=== PATIENT | female | born 1990 | race African-American/Black ===

== ENCOUNTER 2016-10-17 10:29 | Inpatient (IN) ==
[2016-10-17] MEDS ORDERED: ONDANSETRON 4 MG/2 ML VIAL IV PRN ×2 (11:14→20:30)
[2016-10-17] MEDS ORDERED: BUTORPHANOL 2 MG/ML VIAL IV PRN (11:14)
[2016-10-17] MEDS ORDERED: MEPERIDINE 50 MG/1 ML VIAL IV PRN (11:14)
[2016-10-17] MEDS ORDERED: LACTATED RINGERS 1,000 ML IV PRN (11:14)
[2016-10-17] MEDS: AMPICILLIN INJ 2,000 MG in SODIUM CHLORIDE 0.9% 100 ML IV SCH ×2 (11:30→17:22)
[2016-10-17] MEDS: LACTATED RINGERS 1,000 ML IV SCH ×2 (11:34→23:24)
[2016-10-17] MEDS ORDERED: LACTATED RINGERS 500 ML IV ONE (11:39)
[2016-10-17] MEDS ORDERED: ePHEDrine 50 MG/ML AMP IV PRN (11:39)
[2016-10-17] MEDS ORDERED: LACTATED RINGERS 1,000 ML IV ONE (11:39)
[2016-10-17 11:45] LABS: Basophils % 0.4 % (0.0-0.8); Eosinophils # 0.1 10*3/uL (0.0-0.87); Hematocrit 32.6 VOL% (35.7-47.0); Hemoglobin 11.3 GM/DL (12.0-16.0); Immature Granulocytes Absolute 0.07 #; Lymphocytes # 2.3 10*3/uL (1.4-4.0); Lymphocytes % 31.9 % (21.3-54.2); Mean Corpuscular HGB Conc 34.7 GM/DL (32-36); Mean Corpuscular Hemoglobin 31 PG (27-34); Mean Corpuscular Volume 89.6 FL (87-102); Mean Platelet Volume 9.9 FL (9.6-12.0); Monocytes # 0.6 10*3/uL (0.11-0.8); Monocytes % 8.5 % (1.7-12.7); NRBC # 0.03 10*3/uL; Neutrophils % 56.2 % (38.7-73.9); Platelet Count 350 T/CUMM (130-400); Red Blood Count 3.64 MC/CUMM (3.8-5.5); Red Cell Distribution Width 13.6 % (9.3-17.3); White Blood Count 7.1 T/CUMM (4-12)
[2016-10-17] MEDS: OXYTOCIN/LR 20 UNIT/1,000 ML BAG IV SCH (12:00)
[2016-10-17] MEDS ORDERED: LACTATED RINGERS 1,000 ML IV SCH ×2 (12:00)
[2016-10-17] MEDS ORDERED: CITRIC ACID/SODIUM CITRATE 30 ML UDCUP PO ONE (12:13)
[2016-10-17] MEDS ORDERED: FAMOTIDINE 20 MG/2 ML VIAL IV ONE (12:13)
[2016-10-17] MEDS ORDERED: fentaNYL 2 MCG/ROPIV 0.2% EPID 150 ML EPIDURAL ONE (12:14)
[2016-10-17 12:20] LABS: Alanine Aminotransferase 13 U/L (13-56); Albumin 2.2 G/DL (3.4-5.0); Alkaline Phosphatase 348 U/L (45-117); Aspartate Amino Transferase 15 U/L (0-37); Bilirubin,Total < 0.39 MG/DL (0.2-1.0); Blood Urea Nitrogen 6 MG/DL (7-18); Calcium 9.1 MG/DL (8.5-10.1); Glucose 69 MG/DL (74-106); Osmolality,Calculated 272.5 MOS/KG (273-304); Sodium 139 MMOL/L (136-145); Total Protein 6.1 G/DL (6.4-8.3); Uric Acid 4.1 MG/DL (2.6-6.0)
[2016-10-17 12:45] LABS: Rubella Antibody IgG 40.5 IU/ML
[2016-10-17 13:11] LABS: HIV Antigen/Antibody Result Nonreactive (Nonreactive); Hepatitis B Surface Ag Quant < 0.10 Index; Hepatitis B Surface Ag Result Negative (Negative)
[2016-10-17 14:06] LABS: Apearance,Urine CLEAR (Clear); Bilirubin,Urine Negative (Negative); Blood, Urine Negative (Negative); Glucose,Urine (UA) Negative (Negative); Ketones,Urine Negative (Negative); Mucus,Urine Occasional /LPF (Occasional); Nitrite,Urine Negative (Negative); Protein,Urine Negative; RBC,Urine 1 /HPF (0-4); Squamous Epithelial Cell,Urine Occasional /HPF (0-10); Urine Color Yellow (Yellow); Urine Specific Gravity 1.015 (1.001-1.035); Urine Urobilinogen < 2.0 EU/DL (0.2-1.0); WBC,Urine 1 /HPF (0-6)
[2016-10-17 14:18] LABS: Barbiturates Screen,Urine Negative (Negative); Benzodiazepines Screen,Urine Negative (Negative); Cannabinoid Screen,Urine Positive (Negative); Opiate Screen,Urine Negative (Negative); Phencyclidine Screen,Urine Negative (Negative)
[2016-10-17] MEDS ORDERED: LIDOCAINE 1% 50 ML VIAL ONE (19:59)
[2016-10-17] MEDS ORDERED: miSOPROStol 200 MCG TABLET ONE (19:59)
[2016-10-17] MEDS ORDERED: METHYLERGONOVINE 0.2 MG/1 ML AMP ONE (20:00)
--- NOTE | 2016-10-17 20:28 | OB/GYN History & Physical ---
History of Present Illness Chief complaint: 26 yo at ~37 wks per pt history with SROM this morning. History of present illness: Ms. Vann is a 26 year old female No care except a reported US early in the giving a reported EDC 11/06/16. Denies any problems with first delivery. + drug screen today for methamphetamine and marijuana. Denies PMH, DM or HTN. 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 - Constitutional Vitals: Vital Signs Temp Pulse Resp BP Pulse Ox 10/17/16 19:18 97.6 F 73 18 108/56 10/17/16 16:00 98.0 F 68 18 130/79 10/17/16 12:00 97.8 F 61 18 108/65 10/17/16 11:18 97 H 18 111/61 98 General appearance: normal weight, no acute distress - Head Head exam: Present: normal inspection, normocephalic - Eye Eye exam: Present: EOMI - Respiratory Respiratory exam: Present: clear to auscultation bilaterally - Cardiovascular Cardiovascular exam: Present: regular rate and rhythm - GI/Abdominal GI/Abdominal exam: Present: soft (gravid uterus midline with mild UCs) - Extremities Exam Extremities exam: Present: normal inspection - Neurological Exam Neurological exam: Present: alert, oriented X3 - Psychiatric Psychiatric exam: Present: normal affect, normal mood - Skin Skin exam: Present: normal color, warm Assessment and Plan (1) SROM (spontaneous rupture of membranes) Status: Acute Assessment and plan: Admit, augment labor as indicated, expect Current Visit: Yes (2) No care in current in third trimester Status: Acute Current Visit: Yes (3) Methamphetamine use Status: Acute Current Visit: Yes Results - Labs CBC & BMP: 10/17/16 11:37 10/17/16 11:37 Lab Results: I have reviewed the past 24 hour labs Quality Measures - VTE Contraindication to Pharmacological VTE Prophylaxis: Clinical assessment deems Pt at low risk, no prophalaxis needed
[2016-10-17] MEDS ORDERED: oxyCODONE/ACETAMINOPHEN 5-325 MG TABLET PO PRN ×2 (20:30)
[2016-10-17] MEDS ORDERED: WITCH HAZEL PADS 100/JAR TOP PRN (20:30)
[2016-10-17] MEDS ORDERED: DIPH/TET/ACEL PERT BOOSTER VACCINE 0.5 ML VIAL IM ONE (20:30)
[2016-10-17] MEDS ORDERED: BENZOCAINE 20%/MENTHOL 0.5% SPRAY 56 GM CAN TOP PRN (20:30)
[2016-10-17] MEDS ORDERED: HYDROCORTISONE 2.5% RECTAL CREAM 30 GM TUBE TOP PRN (20:30)
[2016-10-17] MEDS ORDERED: ACETAMINOPHEN 325 MG TABLET PO PRN (20:30)
[2016-10-17] MEDS ORDERED: IBUPROFEN 800 MG TABLET PO PRN (20:30)
[2016-10-17] MEDS ORDERED: LANOLIN 50% CREAM 0.3 OZ TUBE TOP PRN (20:30)
[2016-10-17] MEDS ORDERED: MEASLES/MUMPS/RUBELLA VACCINE 0.5 ML VIAL SUBCUT ONE (20:30)
[2016-10-17] MEDS ORDERED: RHO(D) IMMUNE GLOBULIN 300 MCG SYRINGE IM ONE (20:30)
[2016-10-17] MEDS ORDERED: OXYTOCIN/LR 20 UNIT/1,000 ML BAG IV ONE (20:30)
[2016-10-17] MEDS ORDERED: BISACODYL 10 MG SUPP RECTAL PRN (20:30)
--- NOTE | 2016-10-17 20:34 | Operative Note ---
Date of procedure: 10/17/16 Pre-op diagnosis: 1.SROM;2. third TM with no care;3. methamphetamine use Post-op diagnosis: same Procedure: Delivery note. Patient progressed to complete and pushing with labor epidural and Pitocin augmentation and delivered a viable male over intact perineum, right medial labial laceration. Baby was bulb suctioned on the perineum. Cord was double clamped and cut. Cord blood was collected and placenta was delivered intact. Figure of 8 stitch to distal portion of medial labial laceration placed for hemostasis. No other lacerations id'd. Fundus is firm. Estimated blood loss 300 mL. Complications none. Patient is stable and the baby is stable. Anesthesia: epidural Surgeon / Physician: Galilea Aj Estimated blood loss: other (300cc) Specimens: other (placenta to path; cord blood to lab) Condition: stable Disposition: PACU Results - Labs CBC & BMP: 10/17/16 11:37 10/17/16 11:37 Discharge Plan - Discharge Medications No Action Vit No.124/Iron/Folic [ Vitamin Tablet] 1 tablet PO DAILY - Follow Up or Referral - Forms/Instructions
[2016-10-17] MEDS: DOCUSATE SODIUM 100 MG CAPSULE PO SCH (23:15)
[2016-10-18 04:20] LABS: Basophils % 0.2 % (0.0-0.8); Eosinophils # 0.1 10*3/uL (0.0-0.87); Eosinophils % 0.9 % (0.00-10.9); Hematocrit 31.6 VOL% (35.7-47.0); Hemoglobin 10.8 GM/DL (12.0-16.0); Immature Granulocytes % 0.6 %; Immature Granulocytes Absolute 0.08 #; Lymphocytes % 15.8 % (21.3-54.2); Mean Corpuscular HGB Conc 34.2 GM/DL (32-36); Mean Corpuscular Hemoglobin 30 PG (27-34); Mean Corpuscular Volume 88.5 FL (87-102); Mean Platelet Volume 10.2 FL (9.6-12.0); Monocytes # 1.1 10*3/uL (0.11-0.8); Monocytes % 8.1 % (1.7-12.7); Neutrophils # 9.6 10*3/uL (1.4-7.4); Neutrophils % 74.4 % (38.7-73.9); Platelet Count 333 T/CUMM (130-400); Red Blood Count 3.57 MC/CUMM (3.8-5.5); Red Cell Distribution Width 13.3 % (9.3-17.3); White Blood Count 12.9 T/CUMM (4-12)
[2016-10-18] MEDS: AMPICILLIN INJ 2,000 MG in SODIUM CHLORIDE 0.9% 100 ML IV SCH (04:32)
[2016-10-18] MEDS: LACTATED RINGERS 1,000 ML IV SCH ×3 (04:33→21:24)
[2016-10-18] MEDS: DOCUSATE SODIUM 100 MG CAPSULE PO SCH ×2 (08:15→21:22)
--- NOTE | 2016-10-18 13:03 | OB/GYN Progress Note ---
Assessment and Plan (1) SROM (spontaneous rupture of membranes) Status: Acute Current Visit: Yes (2) No care in current in third trimester Status: Acute Current Visit: Yes (3) Methamphetamine use Status: Acute Current Visit: Yes (4) delivery, delivered, current hospitalization Status: Acute Assessment and plan: Routine care. 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 Current Visit: Yes STAFF PSYCHIATRIST - PN: Subj Interval history: POD#1/2 Doing well. VSSAF Exam STAFF PSYCHIATRIST - Constitutional Vitals: Vital Signs Temp Pulse Resp BP Pulse Ox 10/18/16 11:39 97.2 F L 65 20 105/61 98 10/18/16 10:00 18 10/18/16 08:00 98.1 F 61 20 115/72 99 10/18/16 06:00 20 10/18/16 04:00 97.9 F 66 20 116/73 100 10/18/16 02:00 20 10/18/16 00:45 97.7 F 61 18 108/67 99 10/18/16 00:00 97.5 F L 62 18 127/79 10/17/16 19:18 97.6 F 73 18 108/56 10/17/16 16:00 98.0 F 68 18 130/79 General appearance: normal weight, no acute distress - Head Head exam: Present: normal inspection, normocephalic - Eye Eye exam: Present: EOMI - Respiratory Respiratory exam: Present: clear to auscultation bilaterally - Cardiovascular Cardiovascular exam: Present: regular rate and rhythm - GI/Abdominal GI/Abdominal exam: Present: soft (Incision intact without E/I/D) - Extremities Exam Extremities exam: Present: normal inspection - Neurological Exam Neurological exam: Present: alert, oriented X3 - Psychiatric Psychiatric exam: Present: normal affect, normal mood - Skin Skin exam: Present: normal color, warm Results - Labs CBC & BMP: 10/18/16 04:03 10/17/16 11:37 Lab Results: I have reviewed the past 24 hour labs
--- NOTE | 2016-10-18 13:05 | OB/GYN Progress Note ---
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
--- NOTE | 2016-10-18 13:11 | OB/GYN Progress Note ---
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 Exam LITIGATION CLAIM REPRESENTATIVE - Constitutional Vitals: Vital Signs Temp Pulse Resp BP Pulse Ox 10/18/16 11:39 97.2 F L 65 20 105/61 98 10/18/16 10:00 18 10/18/16 08:00 98.1 F 61 20 115/72 99 10/18/16 06:00 20 10/18/16 04:00 97.9 F 66 20 116/73 100 10/18/16 02:00 20 10/18/16 00:45 97.7 F 61 18 108/67 99 10/18/16 00:00 97.5 F L 62 18 127/79 10/17/16 19:18 97.6 F 73 18 108/56 10/17/16 16:00 98.0 F 68 18 130/79 General appearance: normal weight, no acute distress - Head Head exam: Present: normal inspection, normocephalic - Eye Eye exam: Present: EOMI - Respiratory Respiratory exam: Present: clear to auscultation bilaterally - Cardiovascular Cardiovascular exam: Present: regular rate and rhythm - GI/Abdominal GI/Abdominal exam: Present: soft (fundus firm, nontender) - Extremities Exam Extremities exam: Present: normal inspection - Neurological Exam Neurological exam: Present: alert, oriented X3 - Psychiatric Psychiatric exam: Present: normal affect, normal mood - Skin Skin exam: Present: normal color, warm Results - Labs CBC & BMP: 10/18/16 04:03 10/17/16 11:37 Lab Results: I have reviewed the past 24 hour labs
[2016-10-18] MEDS: OXYTOCIN/LR 20 UNIT/1,000 ML BAG IV SCH (21:24)
[2016-10-19] MEDS: LACTATED RINGERS 1,000 ML IV SCH (06:30)
[2016-10-19 08:05] VITALS: BP 124/71
[2016-10-19] MEDS: DOCUSATE SODIUM 100 MG CAPSULE PO SCH (09:29)
--- NOTE | 2016-10-19 09:47 | Discharge Summary ---
Hospital Course - Hospital Course Hospital Course: Pt delivered without complication. Her course has been unremarkable. spoilage worker has reportedly seen pt. Diagnosis - Discharge Diagnosis (1) SROM (spontaneous rupture of membranes) Status: Acute (2) No care in current in third trimester Status: Acute (3) Methamphetamine use Status: Acute (4) Vaginal delivery Status: Acute Specialty Discharge - Follow Up or Referrals Discharge Plan - Discharge Data Disposition: Disch To Home/Self Care Condition at Discharge: Stable Discharge Diet: regular diet Activity: other (pelvic rest x 6 wks) Hygiene: may shower Weight Bearing at Discharge: full weight bearing Driving: no restrictions (if not taking narcotics) Contact your physician if you experience:: fever over 101, Difficulty voiding, Redness or swelling, Nausea/Vomiting, Shortness of breath, Bleeding, pain uncontrolled by pain medications - Discharge Medications New Ibuprofen Tab [Motrin Tab] 800 mg PO Q6H PRN #30 tablet PRN Reason: Pain Moderate (4-7) No Action Vit No.124/Iron/Folic [ Vitamin Tablet] 1 tablet PO DAILY - Follow Up or Referral Follow Up: Galilea Aj DO [Physician] - (6 wks) - Forms/Instructions Instructions: Perineal Care (DC), Vaginal Delivery (DC), Bleeding (DC) Exam - Constitutional Vitals: Period Temp Pulse Resp BP Sys/Bailey Pulse Ox Last 24 Hr 96.7 F-98.7 F 64-88 18-20 105-131/61-79 96-100 General appearance: normal weight, no acute distress - Head Head exam: Present: normal inspection, normocephalic - Eye Eye exam: Present: EOMI - Respiratory Respiratory exam: Present: clear to auscultation bilaterally - Cardiovascular Cardiovascular exam: Present: regular rate and rhythm - GI/Abdominal GI/Abdominal exam: Present: soft (fundus firm, nontender) - Extremities Exam Extremities exam: Present: normal inspection - Neurological Exam Neurological exam: Present: alert, oriented X3 - Psychiatric Psychiatric exam: Present: normal affect, normal mood - Skin Skin exam: Present: normal color, warm DS: Provider Date of admission: 10/17/16 11:14 Primary care physician: . No PCP Attending physician on admission: Galilea Aj DO Consults: 10/17/16 11:14 Consult to Anesthesiology [CONS] Routine Consulting Provider: Reason for Anesthesiology: Epidural Consult Comment: Epidural for pain managment 10/17/16 20:31 Consult to Audio Visual Production Specialist [CONS] Routine Consult Audio Visual Production Specialist: Breast Feeding 10/18/16 04:37 Consult to Case Mgmt/Social Srvs [CONS] Routine Reason for Case Mgmt/Social Srvs: Other Consult Comment: positive for meth and marijuanna on admit. Discharging clinician: Galilea Aj DO Expected date of discharge: 10/19/16
--- NOTE | 2016-10-19 10:31 | Anesthesia Post-Op ---
Anesthesia Post OP - Post Ansesthetic Evaluation Patient seen in post op: Yes Resp: within normal limits CV: within normal limits Mental: within normal limits Temp: within normal limits [id number]: within normal limits Nausea and Vomiting: within normal limits Pain: within normal limits
--- NOTE | 2016-10-21 11:17 | Pathology Report from [facility] ---
[facility] ACCESSION # : [id number] PATIENT NAME : Bertha Vann ORDERING DR : DEIRDRE SWANN, CLINICAL HX: IUP @ 37.1 wks gestation, HX of drug use POST-OP DX: Same SPECIMEN INFO: Placenta GROSS DESCRIPTION: Received fresh labeled BERTHA VANN & PLACENTA is a 528 gm placenta measuring 19.3 x 14.4 x 3 cm. The membranes are pink liang and translucent. The umbilical cord contains three vessels, eccentrically inserted and measures 38.0 cm. The surface is dark blue carter with an area of fibrin present measuring 0.9 cm. The maternal surface is hemorrhagic with intact cotyledons and a few areas of clotted blood present. No gross abnormalities are seen on sectioning. Sections submitted A- membranes and cord, B- and maternal surfaces. DIAGNOSIS FOR BERTHA VANN: Three vessel umbilical cord.Unremarkable placental membranes.Unremarkable third trimester placental chorionic villi with focal subchorionic fibrin deposition and non specific microcalcifications.No polarizable intravascular material. COLLECTED DATE: 10/19/2016 [facility] REPORT DATE: 10/21/2016 ELECTRONICALLY SIGNED BY: Travis Vasquez M.D. 10/21/2016 - 10:42:53 [facility]TDD
--- NOTE | 2016-10-23 03:09 | Pathology Report from [facility] ---
[address] ACCESSION # : [id number] PATIENT NAME : Bertha Vann ORDERING DR : DEIRDRE SWANN, CLINICAL HX: IUP @ 37.1 wks gestation, HX of drug use POST-OP DX: Same SPECIMEN INFO: Placenta GROSS DESCRIPTION: Received fresh labeled BERTHA VANN & PLACENTA is a 528 gm placenta measuring 19.3 x 14.4 x 3 cm. The membranes are pink liang and translucent. The umbilical cord contains three vessels, eccentrically inserted and measures 38.0 cm. The surface is dark blue carter with an area of fibrin present measuring 0.9 cm. The maternal surface is hemorrhagic with intact cotyledons and a few areas of clotted blood present. No gross abnormalities are seen on sectioning. Sections submitted A- membranes and cord, B- and maternal surfaces. DIAGNOSIS FOR BERTHA VANN: Three vessel umbilical cord.Unremarkable placental membranes.Unremarkable third trimester placental chorionic villi with focal subchorionic fibrin deposition and non specific microcalcifications.No polarizable intravascular material. COLLECTED DATE: 10/19/2016 [facility] REPORT DATE: 10/21/2016 ELECTRONICALLY SIGNED BY: Travis Vasquez M.D. 10/21/2016 - 10:42:53 MTDD
== END 2016-10-19 14:20 | disposition home or self-care (01) | DRG 560 ==
LOC: N.LDOUT 10:29 → N.LD 10:31 → N.OB 10-18 00:39
PROVIDERS: ADMIT Obstetrics & Gynecology; ATTEND Obstetrics & Gynecology